=== PATIENT | male | born 1990 | race African-American/Black ===

== ENCOUNTER 2021-04-05 07:56 | Emergency (ER) | payer BC ==
[~2021-04-05] VITALS: Ht 180.3 cm; Wt 107.6 kg
--- NOTE | 2021-04-05 08:28 | PHYS DOC ---
General Adult EDM: Chief Complaint: NAUSEA/VOMITING/DIARRHEA HPI: HPI: Patient is a 30 year old male who presents with headache, visual aura, nausea and vomiting symptoms. He has had the symptoms for several days. No thunderclap headache. No neck pain or stiffness. No fevers or chills. He reports diarrhea, but he reports this has been present for many months, no changes today. He denies abdominal pain. Denies chest pain, cough, dyspnea. Denies palpitations. Denies syncope or near syncope. Denies motor weakness, denies numbness or tingling. He has not taken anything at all for this pain. He has not been vaccinated against Covid. He denies sore throat, congestion, runny nose, earache. He has no prior history of known migraines or chronic headaches. He has had prior headache symptoms, but he reports that they have not usually lasted as long as that which is occurring today. No reported personal or family history of brain aneurysms or subarachnoid hemorrhage. He is here visiting for work, for the next couple weeks to couple of months, and he u sually resides in [facility]. Review of Systems: Review of Systems: Constitutional: Denies fever or chills. [] Eyes: Reports visual aura/floaters prior to onset of headache. No vision loss. No hemianopsia. HENT: Denies nasal congestion or sore throat. [] Respiratory: Denies cough or shortness of breath. [] Cardiovascular: Denies chest pain or edema. [] GI: Chronic diarrhea, unchanged, denies abdominal pain. Reports nausea and vomiting associated with headache. : Denies urinary symptoms. Musculoskeletal: Denies back pain or joint pain. [] Integument: Denies rash. [] Neurologic: Ports headache. Denies numbness, tingling, focal weakness. Denies syncope, vertigo, dizziness. Endocrine: Denies polyuria or polydipsia. [] Lymphatic: Denies swollen glands. [] Psychiatric: Denies depression or anxiety. [] Heart Score: C/O Chest Pain: No Risk Factors: Risk Factors: DM, Current or recent (<one month) smoker, HTN, HLP, family history of CAD, obesity. Risk Scores: Score 0 - 3: 2.5% MACE over next 6 weeks - Discharge Home Score 4 - 6: 20.3% MACE over next 6 weeks - Admit for Clinical Observation Score 7 - 10: 72.7% MACE over next 6 weeks - Early Invasive Strategies Allergies: Allergies: Allergies Coded Allergies Type Severity Reaction Last Updated Verified No Known Drug Allergies 04/05/21 No Physical Exam: PE: Constitutional: Well developed, well nourished, no acute distress, non-toxic appearance. [] HENT: Normocephalic, atraumatic, oropharynx is patent and clear, no exudate or erythema, mucous membranes are moist. TMs are clear bilaterally. Nares are patent without rhinorrhea or epistaxis. Eyes: PERRL, EOMI, conjunctiva normal, no discharge. No nystagmus. Sclera are clear, anicteric. No conjunctival injection. Neck: Normal range of motion, no tenderness, supple, no stridor. Trachea is midline. No meningismus. Cardiovascular:Heart rate regular rhythm, +2 radial and posterior tibial pulses bilaterally, no edema, well-perfused appearing Lungs & Thorax: Bilateral breath sounds clear to auscultation [] Abdomen: Soft, nondistended, nontender to palpation. Skin: Warm, dry, no erythema, no rash. [] Back: No tenderness, no CVA tenderness. [] Extremities: No tenderness, no cyanosis, no clubbing, ROM intact, no edema. [] Neurologic: Alert and oriented X 3, awake, conversant, speech clear and fluent, cranial nerves II through XII grossly intact, 5 out of 5 motor strength all 4 extremities, sensation grossly intact, no pronator drift, no dysmetria, no limb ataxia, gait is steady. Psychologic: Affect normal, judgement normal, mood normal. [] EKG: EKG: [] Radiology/Procedures: Radiology/Procedures: [] Course & Med Decision Making: Course & Med Decision Making Pertinent Labs and Imaging studies reviewed. (See chart for details) IV fluids, IV Zofran and p.o. Tylenol given. He reports history of hives with aspirin and naproxen. He has never had Toradol before. He does report that he has tolerated ibuprofen well however. His pain resolved reportedly after Tylenol. His nausea is resolved after Zofran. CT head is negative for acute life-threatening process or acute disease. He has a nonfocal neurologic exam. No red flag signs or symptoms regarding headache. No current indication for further invasive exams, further emergency department imaging, procedures or admission at this time. I did strongly encouraged him to follow-up with his primary care physician in [place]. He may ultimately require further outpatient imaging, such as MRI, and he may require formal neurology consultation, if symptoms persist. He is comfortable with the plan for discharge home. I discussed home care instructions. Return precautions are given. Cammyon Disclaimer: Adrián Disclaimer: This electronic medical record was generated, in whole or in part, using a voice recognition dictation system. Departure Departure Impression: Primary Impression: Headache Additional Impression: Nausea & vomiting Disposition: 01 HOME / SELF CARE / HOMELESS Condition: STABLE Referrals: NO PCP (PCP) Patient Instructions: Migraine Headache, Tension Headache Additional Instructions: You may use [id number] Tylenol or ibuprofen for pain. Use the nausea medicine as needed. Drink plenty of fluids. Return to the ER for uncontrolled or more severe pain, fever 100.4 or higher, uncontrolled vomiting, dehydration, vomiting blood, severe abdominal pain or any other concerns. Please follow-up with a primary care physician when you return home to [place]. Scripts Ondansetron Hcl (ZOFRAN) 4 Mg Tablet 4 MG PO PRN TID PRN for VOMITING, #20 TAB nausea/vomiting Prov: BERENICE OLIVAS DO 04/05/21 BERENICE OLIVAS DO Apr 05, 2021 08:28
[2021-04-05] MEDS ORDERED: IV NORMAL SALINE 1000ML BAG 1,000 ML IV ONE (08:45)
[2021-04-05] MEDS ORDERED: ONDANSETRON PF 4 MG/2 ML VIAL. IVP ONE (08:45)
[2021-04-05] MEDS ORDERED: ACETAMINOPHEN 500 MG TABLET PO ONE (08:45)
[2021-04-05 09:04] LABS: BASO # 0.1 x10^3/uL (0.0-0.2); BASO % 1 % (0-3); EOS # 0.2 x10^3/uL (0.0-0.7); EOS % 4 % (0-3); HEMATOCRIT 45.4 % (39.0-53.0); HEMOGLOBIN 14.8 g/dL (13.0-17.5); LYMPH # 2.1 x10^3/uL (1.0-4.8); LYMPH % 32 % (24-48); MEAN CORPUSCULAR HEMOGLOBIN 28 pg (25-35); MEAN CORPUSCULAR HGB CONC 33 g/dL (31-37); MEAN CORPUSCULAR VOLUME 85 fL (79-100); MONO # 0.6 x10^3/uL (0.0-1.1); MONO % 9 % (0-9); NEUT # 3.5 x10^3/uL (1.8-7.7); NEUT % 54 % (31-73); PLATELET COUNT 325 x10^3/uL (140-400); RED BLOOD COUNT 5.33 x10^6/uL (4.30-5.70); RED CELL DISTRIBUTION WIDTH 14.5 % (11.5-14.5); WHITE BLOOD COUNT 6.4 x10^3/uL (4.0-11.0)
[2021-04-05 09:15] LABS: CALCIUM 9.3 mg/dL (8.5-10.1); CREATININE 0.8 mg/dL (0.7-1.3); GFR 136.4; POTASSIUM 4.2 mmol/L (3.5-5.1)
[2021-04-05 09:20] LABS: ALBUMIN 4.2 g/dL (3.4-5.0); ALBUMIN/GLOBULIN RATIO 1.1 (1.0-1.7); MAGNESIUM 2.3 mg/dL (1.8-2.4); TOTAL BILIRUBIN 0.3 mg/dL (0.2-1.0); TOTAL PROTEIN 8.2 g/dL (6.4-8.2)
--- NOTE | 2021-04-05 09:41 | RAD ---
EXAMINATION: CT HEAD/BRAIN WO CLINICAL HISTORY: Headache TECHNIQUE: Serial axial images without IV contrast were obtained from the vertex to the foramen magnu m. CT Dose Reduction Employed: One or more of the following individualized dose reduction techniques wer e utilized for this examination: 1. Automated exposure control 2. Adjustment of the mA and/or kV ac cording to patient size 3. Use of iterative reconstruction technique. COMPARISON: None FINDINGS: Acute Change: No evidence of acute intracranial abnormality. Hemorrhage: No evidence of acute intracranial hemorrhage. Mass Lesion/Mass Effect: No evidence of intracranial mass or extraaxial fluid collection. No signific ant mass effect. Parenchyma: Parenchyma within normal limits for age. Ventricles: Ventricles within normal limits for age. Paranasal Sinuses and Skull Base: No significant paranasal sinus disease. Visualized skull base and s oft tissues unremarkable. IMPRESSION: No evidence of acute intracranial abnormality. Electronically signed by: Rafi Ruffin DO (04/05/2021 9:38 AM) [facility]
[2021-04-05 09:54] VITALS: BP 126/51
[2021-04-05] MEDS ORDERED: ONDA4TAB7 PO (10:18)
--- NOTE | 2021-04-06 15:03 | NUR ---
IP: Attempted to contact pt concerning covid results. No answer, left a voicemail to return the call.
--- NOTE | 2021-04-09 09:45 | NUR ---
IP: Second attempt made to contact pt concerning covid results. No answer, left a second voicemail to return the call.
== END 2021-04-05 10:45 | disposition home or self-care (01) ==
LOC: ER 07:56
DX: R51.9 Headache, unspecified (principal); R11.2 Nausea with vomiting, unspecified; R19.7 Diarrhea, unspecified; Z20.822 Contact with and (suspected) exposure to COVID-19
CPT/HCPCS: 36415; 70450; 80053; 83690; 83735; 85025; 87426; 96361; 96374; 99284; J2405; J7030; U0003; U0005